=== PATIENT | male | born 1995 | race Caucasian/White ===

== ENCOUNTER 2018-04-14 14:45 | Emergency (ER) | payer OTHER ==
[2018-04-14 15:01] VITALS: BP 116/67
[2018-04-14] MEDS ORDERED: PROCHLORPERAZINE EDISYLATE INJ 10 MG/2 ML VIAL IV ONE (15:19)
[2018-04-14] MEDS ORDERED: KETOROLAC TROMETHAMINE INJ/PF 30 MG/1 ML SDV IV ONE (15:19)
[2018-04-14] MEDS ORDERED: NORMAL SALINE 1000 ML 1,000 ML IV ONE (15:19)
--- NOTE | 2018-04-14 15:20 | ER Document Report ---
ED Medical Screen (RME) - General Chief Complaint: Headache <24 hrs old Stated Complaint: HEADACHE/VOMITING Time Seen by Provider: 04/14/18 15:14 Notes: 23 years old male presents today with nausea and vomiting vomited about 7 times today. Prior to that started having right-sided headache which became very severe. He has a history of migraine in the remote past. No aura. Examination is benign TRAVEL OUTSIDE OF THE [place] IN LAST 30 DAYS: No - Related Data Allergies/Adverse Reactions: No Known Allergies Allergy (Unverified 04/14/18 14:46) Past Medical History Renal/ Medical History: Denies: Hx Peritoneal Dialysis Physical Exam - Vital signs Vitals: Temp Pulse Resp BP Pulse Ox 97.3 F 59 L 20 116/67 98 04/14/18 14:57 04/14/18 14:57 04/14/18 14:57 04/14/18 14:57 04/14/18 14:57 Course - Vital Signs Vital signs: Temp Pulse Resp BP Pulse Ox 97.3 F 59 L 20 116/67 98 04/14/18 14:57 04/14/18 14:57 04/14/18 14:57 04/14/18 14:57 04/14/18 14:57
[2018-04-14 16:13] LABS: ABSOLUTE EOSINOPHILS # (AUTO) 0.2 10^3/uL (0.0-0.6); ABSOLUTE MONOCYTES (AUTO) 0.7 10^3/uL (0.1-1.4); ABSOLUTE NEUT (AUTO) 9.8 10^3/uL (1.7-8.2); BASOPHILS % (AUTO) 0.4 % (0-2); EOSINOPHILS % (AUTO) 1.3 % (0-6); HEMATOCRIT 42.5 % (37.9-51.0); LYMPHOCYTES % (AUTO) 15.5 % (13-45); MEAN CORPUSCULAR HEMOGLOBIN 30.3 pg (27.0-33.4); MEAN CORPUSCULAR HGB CONC 35.4 g/dL (32.0-36.0); MEAN CORPUSCULAR VOLUME 86 fl (80-97); MONOCYTES % (AUTO) 5.5 % (3-13); PLATELET COUNT 250 10^3/uL (150-450); RED BLOOD COUNT 4.96 10^6/uL (4.35-5.55); RED CELL DISTRIBUTION WIDTH 13.1 % (11.5-14.0); SEGMENTED NEUTROPHILS % (AUTO) 77.3 % (42-78); TOTAL CELLS COUNTED % (AUTO) 100 %; WHITE BLOOD COUNT 12.6 10^3/uL (4.0-10.5)
[2018-04-14 16:18] LABS: APPEARANCE,URINE CLEAR; BILIRUBIN,URINE NEGATIVE (NEGATIVE); COLOR,URINE YELLOW; GLUCOSE, URINE NEGATIVE (NEGATIVE); KETONES,URINE NEGATIVE (NEGATIVE); LEUKOCYTE ESTERASE,URINE NEGATIVE (NEGATIVE); NITRITE,URINE NEGATIVE (NEGATIVE); PROTEIN,URINE NEGATIVE (NEGATIVE); URINE SPECIFIC GRAVITY 1.021; UROBILINOGEN,URINE NEGATIVE mg/dL (<2.0)
[2018-04-14 16:29] LABS: ALANINE AMINOTRANSFERASE 24 U/L (21-72); ALBUMIN 4.6 g/dL (3.5-5.0); ALKALINE PHOSPHATASE 74 U/L (38-126); ANION GAP 10 (5-19); ASPARTATE AMINO TRANSFERASE 31 U/L (17-59); BILIRUBIN,DIRECT 0.4 mg/dL (0.0-0.4); BILIRUBIN,TOTAL 0.7 mg/dL (0.2-1.3); BLOOD UREA NITROGEN 18 mg/dL (7-20); CALCIUM 9.7 mg/dL (8.4-10.2); CARBON DIOXIDE 32 mmol/L (22-30); CHLORIDE 99 mmol/L (98-107); GLUCOSE 97 mg/dL (75-110); SODIUM 141.3 mmol/L (137-145); TOTAL PROTEIN 7.8 g/dL (6.3-8.2)
[2018-04-14 16:42] LABS: URINE AMPHETAMINES SCREEN NEGATIVE; URINE BARBITURATES SCREEN NEGATIVE; URINE BENZODIAZEPINES SCREEN NEGATIVE; URINE COCAINE SCREEN NEGATIVE; URINE MARIJUANA (THC) SCREEN NEGATIVE; URINE METHADONE SCREEN NEGATIVE; URINE PHENCYCLIDINE SCREEN NEGATIVE
--- NOTE | 2018-04-14 17:21 | RADIOLOGY REPORT (SQ) ---
EXAM DESCRIPTION: CT HEAD WITHOUT COMPLETED DATE/TIME: 04/14/2018 5:08 pm REASON FOR STUDY: new onset headache COMPARISON: None. TECHNIQUE: Axial images acquired through the brain without intravenous contrast. Images reviewed wi th bone, brain and subdural windows. Additional sagittal and coronal reconstructions were generated. Images stored on PACS. All CT scanners at this facility use dose modulation, iterative reconstruction, and/or weight based d osing when appropriate to reduce radiation dose to as low as reasonably achievable (ALARA). [facility]: Dose Right [facility]: CareDose [facility]: Dose Right [facility]: Teradose 4D [facility]: Smart LineRate Systems RADIATION DOSE: CT Rad equipment meets quality standard of care and radiation dose reduction techniq ues were employed. CTDIvol: 53.2 mGy. DLP: 1017 mGy-cm. mGy. LIMITATIONS: None. FINDINGS: VENTRICLES: Normal size and contour. CEREBRUM: No masses. No hemorrhage. No midline shift. No evidence for acute infarction. Normal gra y/white matter differentiation. No areas of low density in the white matter. CEREBELLUM: No masses. No hemorrhage. No alteration of density. No evidence for acute infarction. EXTRAAXIAL SPACES: No fluid collections. No masses. ORBITS AND GLOBE: No intra- or extraconal masses. Normal contour of globe without masses. CALVARIUM: No fracture. PARANASAL SINUSES: Chronic right maxillary and left sphenoid sinus disease. SOFT TISSUES: No mass or hematoma. OTHER: No other significant finding. IMPRESSION: NORMAL BRAIN CT WITHOUT CONTRAST. EVIDENCE OF ACUTE STROKE: NO. COMMENT: Quality ID # [id number]: Final reports with documentation of one or more dose reduction techniques (e.g., Automated exposure control, adjustment of the mA and/or kV according to patient size, use of iterative reconstruction technique) TECHNICAL DOCUMENTATION: JOB ID: [id number] [facility]- All Rights Reserved Reading location - IP/workstation name: [email or web address]
--- NOTE | 2018-04-14 18:24 | ER Document Report ---
ED Headache - General Chief Complaint: Headache <24 hrs old Stated Complaint: HEADACHE/VOMITING Time Seen by Provider: 04/14/18 15:14 Mode of Arrival: Ambulatory Information source: Patient Notes: Patient is a 23-year-old male comes emergency room with a sudden onset of a "major migraine". Patient states that around 10 AM this morning between 10 AM and 11 AM he started with a generalized headache across the frontal portion of his head. Between 12:31 PM he states all of a sudden he became excessively focal on the right side of his head starting from about the corner of the right eye and running to the temporal area and back to about the ear. Said it was so intense that he started to throw up. He vomited 2 or 3 times and then he went to the store got some Excedrin Migraine medication and took it a few minutes later he vomited one more time and so he came to ER. While he was sitting in the ER waiting to be triaged he vomited 4-5 more times which was more just dry heaving at that point. He stated the pain was so intense on the right side of his head could do nothing but vomit. He does not have a history of headaches in the past does not have a history of migraines. He denies any other medical problems. Patient is unsure whether he has a family history of this since he does not know his family. A is in the and [place] the [employer]. He smokes about 1/4 pack of cigarettes a day. Patient states that when he started with his generalized headache as it started to move and become focal on the right he had some blurry vision on the left. He denies having a curtain type reaction. Blurriness only lasted for a few minutes and he has no complaints of visual problems now. He denies any photophobia, no sensitivity to noise or lights. TRAVEL OUTSIDE OF THE [place] IN LAST 30 DAYS: No - HPI Patient complains to provider of: Headache Patient reports: No: Brain neoplasm, Congenital anomally, Frequent migraines, Hx chronic headaches, Prior CVA, Prior neurologic eval, Prior hemorrhage, Prior TBI Onset: This morning Onset was: Abrupt Timing: Better Quality of pain: Sharp, Throbbing Severity: Severe Pain Level: 4 Preceding symptoms: denies: Typical of prior aura(s), Visual disturbance Associated symptoms: Nausea/vomiting. 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 denies: Abdomen distended, Abdominal pain Genitourinary: No symptoms reported Male Genitourinary: No symptoms reported Musculoskeletal: No symptoms reported Skin: No symptoms reported Hematologic/Lymphatic: No symptoms reported Neurological/Psychological: See HPI, Headaches -: Yes All other systems reviewed and negative Physical Exam - Vital signs Vitals: Temp Pulse Resp BP Pulse Ox 97.3 F 59 L 20 116/67 98 04/14/18 14:57 04/14/18 14:57 04/14/18 14:57 04/14/18 14:57 04/14/18 14:57 Interpretation: Normal, Bradycardic - Notes Notes: PHYSICAL EXAMINATION: GENERAL: Patient is a well-nourished well-developed 23-year-old male who is in no apparent distress on physical exam tonight. He does appear somewhat uncomfortable. HEAD: Atraumatic, normocephalic. EYES: Pupils equal round and reactive to light, extraocular movements intact, sclera anicteric, conjunctiva are normal. ENT: Nares patent, oropharynx clear without exudates. Moist mucous membranes. NECK: Normal range of motion, supple without lymphadenopathy LUNGS: Breath sounds clear to auscultation bilaterally and equal. No wheezes rales or rhonchi. HEART: Regular rate and rhythm without murmurs ABDOMEN: Soft, nontender, nondistended abdomen. No guarding, no rebound. No masses appreciated. Musculoskeletal: Normal range of motion, no pitting or edema. No cyanosis. NEUROLOGICAL: Normal speech, normal gait. Normal sensory, motor exams. Neurologically patient is intact. PSYCH: Normal mood, normal affect. SKIN: Warm, Dry, normal turgor, no rashes or lesions noted. Course - Re-evaluation Re-evalutation: 04/14/18 18:29 Patient's course of stay has been uneventful. He is received Zofran and some Toradol his headache went from a 5 out of 5 down to a 0.5 and he has not vomited since being in ER after on the Zofran. Neurologically patient was intact I elected to do the head CT secondary to the following factors 1. No history of headaches in the past. 2. The unilateral presentation of the headache after originally starting as a generalized headache 3. Blurry vision in the left eye while headache focalized on the right. These findings concerned me because they did not add up to a specific type of headache. Given patient's involvement in the felt that it was necessary to make sure we have not missed anything. His labs came back normal with the exception of a 12 point something white count which is probably from demargination secondary to the vomiting. At this point I am pretty much convinced there is no sign of a subdural bleed or a CVA, TIA presentation. - Vital Signs Vital signs: Temp Pulse Resp BP Pulse Ox 97.3 F 59 L 20 116/67 98 04/14/18 14:57 04/14/18 14:57 04/14/18 14:57 04/14/18 14:57 04/14/18 14:57 - Laboratory Result Diagrams: 04/14/18 15:52 04/14/18 15:52 Laboratory results interpreted by me: 04/14/18 04/14/18 15:52 15:52 WBC 12.6 H Absolute Neutrophils 9.8 H Carbon Dioxide 32 H Discharge - Discharge Clinical Impression: Headache Qualifiers: Headache type: cluster Headache chronicity pattern: unspecified pattern Intractability: not intractable Qualified Code(s): G44.009 - Cluster headache syndrome, unspecified, not intractable Condition: Stable Disposition: HOME, SELF-CARE Instructions: Cluster Headache ([facility]) Additional Instructions: Since you have responded well to the medications here I will send you home on ibuprofen, Zofran for nausea medication. Neither of these will make you sedated. You can work on or while taking both medications. Home and rest diet and liquids as tolerated. Highly suggest sticking may be of clear liquids for tonight and then advancing tomorrow. As we discussed should you have any concerns or problems over the weekend return to ER for a recheck. If headaches continue I highly suggest [place] Prescriptions: Ibuprofen [Ibu] 800 mg PO TID PRN #20 tablet PRN Reason: Ondansetron [Zofran Odt 4 mg Tablet] 1 - 2 tab PO Q4H PRN #15 tab.rapdis PRN Reason: For Nausea/Vomiting Forms: Smoking Cessation Education [facility]errals: [facility] [NO [facility]AL MD] - Follow up as needed
== END 2018-04-14 18:51 | disposition home or self-care (01) ==
LOC: ER 14:45
DX: G44.009 Cluster headache syndrome, unspecified, not intractable (principal); F17.210 Nicotine dependence, cigarettes, uncomplicated
CPT/HCPCS: 99284; 96361; 96374; 96375; 36415; 85025; 80053; 81001; 80307; 70450; J1885; J0780; J7030

== ENCOUNTER → 2020-03-21 | Outpatient (CLI) | payer SELFPAY ==
[2020-03-21 11:06] VITALS: BP 109/62
--- NOTE | 2020-03-21 11:06 | ER RDC ASSESSMENT REPORT ---
Intake - In the Last 14 days Have you traveled outside [place]?: No Have you been in close contact with someone CONFIRMED: Yes Worked in Healthcare?: No - Symptoms Subjective Fever([place] feverish): No Chills: No Muscule Aches: No Runny Nose: Yes Sore Throat: Yes Cough (New or worsening chronic cough): No Shortness of breath: No Nausea or Vomiting: No Headache: No Abdominal Pain: No Diarrhea(3 or more loose stools in last 24 hours): No - Do you have any of the following Chronic lung disease: Asthma or emphysema or COPD: No Cystic Fibrosis: No Diabetes: No High Blood Pressure: No Cardiovascular Disease: No Chronic Kidney Disease: No Chronic Liver Disease: No Chronic blood disorder like Sickle Cell Disease: No Weak immune system due to disease or medication: No Neurologic condition that limits movement: No Developmental delay - Moderate to Severe: No Recent (within past 2 weeks) or current : No Morbid Obesity (>100 pounds over ideal weight): No Obesity Comment: Height 6 feet 1 inches weight 145 pounds - Objective Temperature: 97.9 F Pulse Rate: 72 Respiratory Rate: 18 Blood Pressure: 109/62 O2 Sat by Pulse Oximetry: 97 Objective: Given above, testing performed: If Testing Performed: Test Specimen Type Sent to General - General Information source: Patient Notes: Patient here at [facility] for Covid testing. Patient reports ex- has had exposure patient picked up daughter from ex- last night daughter had been staying with ex- throughout the week. Patient has had congestion and a sore throat since last week on the sixth. Patient does not have any known PCP. - Related Data Allergies/Adverse Reactions: No Known Allergies Allergy (Unverified 04/14/18 14:46) Past Medical History - General Information source: Patient - Social History Smoking Status: Former Smoker - quit a year ago Family History: Reviewed & Not Pertinent Renal/ Medical History: Denies: Hx Peritoneal Dialysis Physical Exam - General General appearance: Appears well, Alert In distress: None Notes: PHYSICAL EXAMINATION: GENERAL: Well-appearing and in no acute distress. HEAD: Atraumatic, normocephalic. EYES: sclera anicteric, conjunctiva are normal. ENT: nares patent. Moist mucous membranes. NECK: Normal range of motion, supple without lymphadenopathy LUNGS: CTAB and equal. No wheezes rales or rhonchi. Respirations even and unlabored lung sounds clear HEART: Regular rate and rhythm without murmurs ABDOMEN: Soft, nontender, normal bowel sounds, no guarding. EXTREMITIES: Normal range of motion, no pitting edema. No cyanosis. NEUROLOGICAL: Cranial nerves grossly intact. Normal speech. Normal gait. PSYCH: Normal mood, normal affect. SKIN: Warm, Dry, normal turgor, no rashes or lesions noted Diagnostic Results Laboratory Results: Patient informed of negative rapid strep results. Pending strep culture pending Covid testing results. Patient provided instructions regarding Covid to include: As a person under investigation for Covid 19, the [facility] of Health and Human Services, division of public health advises you to adhere to the following guidance until your test results are reported to you. If your test result is positive, you will receive additional information from your provider and your local health department at that time. Remain at home until you are cleared by the health provider or public health authorities. Keep a log of visitors to your home, notify any visitors to your home of your isolation status. If you plan to move to a new address or leave the county, notify the local health department in your County. Call your doctor or seek care if you have an urgent medical need. Before seeking medical care, call ahead to get instructions from the provider before a rriving at the medical office clinic or hospital. Notify them that you are being tested for the virus that causes Covid 19 so that arrangements can be made, as necessary, to prevent transmission to others in the healthcare setting. Next, notify the local health department in your county. If a medical emergency arises and you need to call 911, inform the first responders that you are being tested for the virus that causes Covid 19. Next, notify the local health department in your county. Patient Education/Counseling Counseling/Education: Patient presents with upper respiratory symptoms worrisome for possible Covid 19. Patient does not have emergency worring symptoms such as difficulty breathing, shortness of breath, chest pain, pressure, confusion or cyanosis. Patient appears suitable for discharge. Patient instructed to follow-up with urgent care or to ED for persistent or worsening symptoms. Patient's vital signs are stable and patient is nontoxic in appearance. Good return precautions have been discussed with patient, patient verbalized understanding and is agreeable with discharge plan of care at this time. [facility] Discharge - Discharge Condition: Stable Disposition: Home; Selfcare
== END ==
LOC: RDC 09:16
PROVIDERS: ATTEND Nurse Practitioner Family
DX: Z20.828 Contact with and (suspected) exposure to other viral communicable diseases (principal); R09.89 Other specified symptoms and signs involving the circulatory and respiratory systems; J02.9 Acute pharyngitis, unspecified
CPT/HCPCS: 87070; 87880; 87635; C9803; 99201; 99211